=== PATIENT | female | born 1965 | race Caucasian/White ===

== ENCOUNTER → 2017-01-01 | Outpatient (CLI) | payer OTHER | LOC: FIMAGING 10:12 | DX: Z12.31 Encounter for screening mammogram for malignant neoplasm of breast (principal) | CPT/HCPCS: G0202 ==

== ENCOUNTER → 2017-02-12 | Outpatient (CLI) | payer OTHER | LOC: FIMAGING 13:41 | PROVIDERS: ATTEND Obstetrics & Gynecology | DX: D25.1 Intramural leiomyoma of uterus (principal); D25.0 Submucous leiomyoma of uterus; D25.2 Subserosal leiomyoma of uterus; N83.202 Unspecified ovarian cyst, left side; R93.8 Abnormal findings on diagnostic imaging of other specified body structures ==

== ENCOUNTER → 2018-03-15 | Outpatient (CLI) | payer OTHER | LOC: FIMAGING 15:13 | PROVIDERS: ATTEND Internal Medicine | DX: Z12.31 Encounter for screening mammogram for malignant neoplasm of breast (principal) ==